=== PATIENT | female | born 1950 | race Caucasian/White ===

== ENCOUNTER 2017-12-30 07:30 | Inpatient (IN) ==
[2017-12-30] MEDS ORDERED: Chlorhexidine 4% Topical 120 APPLIC/120 ML Bottle TOPICAL SCH (08:45)
[2017-12-30] MEDS ORDERED: Insulin NovoLIN Regular Correctional Sugar Inj SQ SCH (08:45)
[2017-12-30] MEDS ORDERED: Chlorhexidine Gluconate 2% 1 Pack (2 Cloths) TOPICAL SCH (08:45)
[2017-12-30] MEDS ORDERED: Metoprolol Tartrate 25 MG Tablet PO SCH (08:45)
[2017-12-30] MEDS ORDERED: Vancomycin Inj 1 GM/200 ML PIGGYBACK IV.SIG SCH (09:00)
[2017-12-30] MEDS ORDERED: Sodium Chlor 0.9% Inj 500 ML IV.SIG SCH (09:00)
[2017-12-30] MEDS ORDERED: ceFAZolin 2 GM Premix Inj 2 GM/50 ML PIGGYBACK IV.SIG SCH (09:00)
[2017-12-30] MEDS ORDERED: Famotidine PF Inj 20 MG/2 ML Vial ONE (11:30)
[2017-12-30] MEDS ORDERED: Lidocaine PF 1% Inj 5 ML Syringe INFILTRATN ONE (12:00)
[2017-12-30] MEDS ORDERED: Glycopyrrolate Inj 1 MG/5 ML Syringe IV.PUSH ONE (12:00)
[2017-12-30] MEDS ORDERED: Sodium Chlor 0.9% Inj 500 ML IV.SIG ONE (12:00)
[2017-12-30] MEDS ORDERED: Labetalol HCl Inj 100 MG/20 ML Vial IV.CONT ONE (12:00)
[2017-12-30] MEDS ORDERED: Phenylephrine/NS 1000 MCG/10ML Syringe IV.PUSH ONE (12:00)
[2017-12-30] MEDS ORDERED: Metoprolol Inj 5 MG/5 ML Vial IV.PUSH ONE (12:00)
[2017-12-30] MEDS ORDERED: Dexmedetomidine Inj 200 MCG/2 ML Vial ONE (12:57)
[2017-12-30] MEDS ORDERED: Ketamine Inj 500 MG/10 ML Vial ONE (12:58)
[2017-12-30] MEDS ORDERED: Bupivacaine/Epinephrine PF Inj 0.5% 10 ML Vial ONE (13:52)
[2017-12-30] MEDS ORDERED: Betamethasone Sod Phos/Acetate Inj 30 MG/5 ML Vial IM ONE (13:52)
[2017-12-30 18:48] LABS: Hematocrit 26.4 % (35.0-46.0); Hemoglobin 8.8 gm/dL (11.6-15.3)
[2017-12-30] MEDS ORDERED: fentaNYL Citrate Inj 100 MCG/2 ML Ampul ONE (20:23)
[2017-12-30] MEDS ORDERED: Naloxone Inj 0.4 MG/ML Vial IV.PUSH PRN (21:13)
[2017-12-30] MEDS ORDERED: Temazepam 15 MG Capsule PO PRN (21:13)
[2017-12-30] MEDS ORDERED: Morphine Inj 4 MG/ML Vial IV.PUSH PRN (21:13)
[2017-12-30] MEDS ORDERED: Bisacodyl 10 MG Supp RECTAL PRN (21:13)
[2017-12-30] MEDS ORDERED: Post-op Orders (for Pharmacy) OTHER STA (21:13)
[2017-12-30] MEDS ORDERED: RIZATRIPTAN PO PRN (21:15)
[2017-12-30] MEDS ORDERED: Non-Formulary Drug (Cyclosporine [Restasis] 1 DRP) EACH EYE SCH (21:15)
--- NOTE | 2017-12-30 21:18 | XR ---
EXAM DATE: 12/30/2017 9:13 PM EDT AGE/SEX: 67 years / Female INDICATIONS: Hardware removal and fusion of L2-L4. CLINICAL DATA: This is the patient's initial encounter. Patient reports that signs and symptoms have been present for 1 day and indicates a pain score of Nonresponsive. MEDICAL/SURGICAL HISTORY: Non-responsive. Non-responsive. COMPARISON: [facility] [place], SPINE LUMBAR [facility] (AP & LAT), 05/19/2012. . FINDINGS: Transpedicular screws are seen at the L2-S1 levels with stabilization devices at the intervening disc levels. This appears well placed. CONCLUSION: Surgical hardware. Electronically signed by: Errol Higgins MD 12/30/2017 9:17 PM EDT
--- NOTE | 2017-12-30 21:36 | P.OP ---
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 Takedown of nonunion, L3-4. Removal of posterior spinal segmental instrumentation L3-4, L4-S1. Removal of broken instrumentation at L4, bilateral. Lumbar laminectomy L2-3, bilateral. Subtotal facet resection left L2-3. Posterior lateral interbody fusion L2-3. Placement of interbody cage L2-3 from the left. Posterior spinal segmental instrumentation L2-S1. Major bone grafting of the lumbar spine L2-L4, Anesthesia: GETA Surgeon: Eros Post MD Flat Clothier: Flor Madrigal PA-C Operation and Findings: EBL: 500 cc INDICATION: This patient is a 67-year-old female status post previous multiple lumbar surgeries. Her last surgery was 5 years ago where she had a portion of the lumbar instrumentation removed and a fusion at L3-4. She developed a failed fusion at that level and failure of instrumentation. She now has remarkable instability above that at the L2-3 level with high-grade spinal stenosis. She presents for surgical treatment. NOTE: Flor Madrigal PA-C was present for the entire surgical procedure as my administrative assistant receptionist. In my medical opinion her skill and care was necessary for the proper management of this patient. PROCEDURE: The patient was brought to the operating room and anesthetized in the supine position. The patient was rolled to a prone position on a Clement frame on a Kam table. All pressure points were protected in the back was scrubbed with alcohol followed by Hibiclens followed by ChloraPrep and draped sterilely. A timeout was done and antibiotics were given. AP and lateral radiographic images were used to identify the proper levels and perform skin markings. The previous incision was excised. Soft tissue dissection continued out to the tips of the transverse processes from L2 down to the fusion mass at L4. There was a failed fusion at L3-4 which was resected. The instrumentation at the L3- 4 level had fatigued. We removed the instrumentation below which was from [employer]. Soft tissue dissection allowed exposure at the L3-4 level where instrumentation was also removed. The screws were broken. A soft tissue and bone removal system was utilized. The screws were then removed in a retrograde fashion. The L2-3 level was approached. Under the microscope, a bilateral laminectomy was accomplished. We had a high-grade lateral recess stenosis worse on the left side. A subtotal facet resection was accomplished. The annulus was opened. A total discectomy was accomplished. A combination of autogenous bone graft, demineralized bone matrix and Nucel stem cells were injected into the disc space. A spine wave cage was deployed and elevated to 10 mm. The alignment was satisfactory. A high-speed bur was used to remove bone lateral access the pedicle at L2. Bilateral screws were placed using spine wave screws. Bilateral 6.5 x 50 screws were placed at that level, bilateral 7.5 x 50 screws at L3, bilateral 8.5 x 50 screws at L4, left 7.5 x 50 screws at L5 and right 6.5 x 50 screws, bilateral simply 5 x 40 screws at S1. The system was tightened according manufacture recommendation with the proper length rods. The spondylolisthesis at L2-3 was reduced. The wound was irrigated multiple times. Antibiotics were redosed during the operation. The lateral gutters were bone grafted from L2 down to the fusion mass of L4 and crossing the nonunion level of L3-4. A deep drain brought through separate stab incision. The fascia was closed with interrupted #1 Vicryl suture, subcutaneous tissue 2-0 Vicryl suture and skin with running intradermal 3-0 Vicryl followed by Steri-Strips and benzoin Sponge and needle counts and has been counts were all correct the patient tolerated procedure well taken recovery room in satisfactory condition. FINDINGS: There was a high-grade and very unstable spondylolisthesis at L2-3 which was corrected. The stenosis was decompressed. Screw position at the end of the procedure appeared to be very satisfactory
--- NOTE | 2017-12-30 21:37 | P.DCO ---
- Physical Therapy Physical Therapy: Gait training S/P Spinal Fusion: Gait training with walker, Weight bearing as tolerated, No twisting of torso, No bending - Nursing RN: 3 days/week x 2 weeks Nursing: Dressing changes Dressing changes: Daily dressing change - Certification Need for Home Health services: I have seen patient Trena Lugo on 12/30/17. My clinical findings support the need for the requested home health care services because: Need for Home Health Services: Limited ability to care for self, High risk of falls Homebound Certification: I certify that my clinical findings support that this patient is homebound because: Homebound Certification: Unsteady gait/balance
--- NOTE | 2017-12-30 21:39 | P.DS ---
Date of admission: 12/30/17 07:45 Primary care physician: German Simmons MD Attending physician on discharge: Eros Post Anticipated date of discharge: 01/01/18 Brief History from admission: This patient is a 67-year-old female admitted for elective surgery on her spine. She has an unstable spondylolisthesis at L2-3. She has a failed fusion at L3-4 and a high-grade spinal stenosis at L2-3. She has retained instrumentation at L3-4 and separate instrumentation L4 to the sacrum. She now presents for surgical treatment DS: Diagnosis - Discharge Diagnosis (1) Lumbar spinal stenosis Status: Acute DS: Medications - Discharge Medications Prescriptions: hydrocodone-acetaminophen 1 tab PO Q4H PRN #42 tab PRN Reason: Acute Pain DS: Summary Hospital Course: The patient was admitted electively for spinal decompression and fusion. This patient had a relatively unremarkable perioperative course. She was taken to the operating room on the date of admission. She was transferred to the floor postoperatively. On the second postoperative day she was up out of bed and ambulating using a brace. She was tolerating a regular diet. A walker was prescribed. She was given oral medications for pain. She is felt to be a candidate for discharge home with home health care and home physical therapy - Time Spent with Patient Total time spent providing and/or coordinating discharge services: - Quality: VTE Deep Vein Thrombosis/Pulmonary Embolism Present on Admission: No Exam Vital signs: Vital Signs 12/30/17 09:16 Temperature 98.3 F Pulse Rate 73 Respiratory Rate 18 Blood Pressure 196/115 H Pulse Oximetry 98 Intake & Output 12/30/17 12/30/17 12/31/17 06:59 18:59 06:59 Intake Total 50 / 50 Balance 50 / 50 Weight 97.9 kg Intake: IV 50 / 50 Ancef 2 GM Premix Inj 2 gm In 50 / 50 50 ml @ 100 mls/hr IV.SIG [employer] [facility]ARYN Rx#:[id number] Other: Weight On Admission 97.9 kg Results Procedures completed during hospitalization: Exploration of lumbar spinal fusion with removal of instrumentation, bilateral laminectomy L2-3, posterior spinal fusion L2-L4 Labs on day of discharge: Labs from last 24 hours 12/30/17 12/30/17 12/30/17 18:26 09:35 09:35 Hgb 8.8 L Hct 26.4 L POC Glucose 151 H Blood Type A Negative Blood Type Recheck Not needed Antibody Screen Negative - Impressions ITS Impressions Lumbar Spine X-Ray 12/30/17 00:00 CONCLUSION: Surgical hardware. Discharge Plan - Discharge Disposition Patient Disposition: W/Home Health Service - Discharge Condition Condition: Good - Discharge Order Discharge Orders: Discharge Order (Routine); Ordered 12/30/17 Ordered By: Eros Post - Physicians Team Primary Care Provider: German Simmons Attending Provider: Eros Post Other Providers: William Murdock MD - Rxs /Orders / Referrals /Forms Prescriptions: New hydrocodone-acetaminophen 10-325 mg Tablet 1 tab PO Q4H PRN (Reason: Acute Pain) Qty: 42 RF: 0 Continue Amitiza 24 mcg tablet 1 tab PO DAILY amitriptyline 75 mg tablet 1 tab PO HS amlodipine 10 mg Tablet 10 mg PO DAILY cyclobenzaprine 10 mg Tablet 10 mg PO TID PRN (Reason: Muscle Spasm) cyclosporine [Restasis] 0.05 % Dropperette 1 drp OPHTHALMIC (EYE) Q12H fenofibrate nanocrystallized 48 mg Tablet 48 mg PO DAILY glipizide 5 mg Tablet 5 mg PO DAILY insulin lispro [Humalog U-100 Insulin] 100 unit/mL Cartridge lisinopril 40 mg Tablet 40 mg PO DAILY montelukast 10 mg Tablet 10 mg PO QPM pregabalin [Lyrica] 100 mg Capsule 100 mg PO DAILY propranolol 60 mg Tablet 60 mg PO BID ranolazine [Ranexa] 500 mg Tablet Extended Release 12 Hr BID rizatriptan 10 mg Tablet 10 mg PO Q2-4H rosuvastatin 10 mg Tablet 10 mg PO HS valacyclovir 500 mg tablet 1 tab PO BID Ambulatory Orders / Order Sets / DME: Walker With Front Wheels (1 each) (Routine) Location: Determined by Patient Ordered By: Eros Post Referrals: German Simmons MD [Primary Care Provider] - See Instructions - Discharge Instructions Patient Printed Instructions: Hydrocodone/Acetaminophen (By mouth), Laxative, Stool Softeners (By mouth), Laminectomy (DC), How to Choose and Use a Walker ( GEN), Acute Low Back Pain (ED), Fall Prevention (DC), Lumbar Brace (DC) Additional Instructions: Make or keep your follow up appointments as directed by your provider. Take medications as directed. PRESCRIPTIONS PROVIDED AT TIME OF DISCHARGE. DO NOT CHANGE SURGICAL DRESSING, KEEP DRY AND INTACT. REPORT ANY SIGNS OF INFECTION SUCH REDNESS, DRAINAGE, SWELLING, OR FEVER TO THE SURGEON. CONTINUE TO WEAR YOUR LUMBAR BRACE WHEN OUT OF BED. - Post Discharge Care Plan Care Plan Goals: Your Health Problems: Goals to Promote Your Health: * To prevent worsening of your condition * To maintain your health at the optimal level Directions to Meet Your Goals: * Take your medications as prescribed * Follow your dietary instruction * Follow activity as directed * Keep your appointments as scheduled * Take your immunizations and boosters as scheduled * If your symptoms worsen call your PCP * If no PCP go to Urgent Care or Emergency Room Smoking is dangerous to your health. Avoid second hand smoke. You may reach the 24-hour crisis hotline for domestic abuse at .
[2017-12-30] MEDS ORDERED: PT:RESTASIS OPTH SOL EACH EYE SCH (22:00)
[2017-12-30] MEDS ORDERED: HYDROmorphone PF Inj 2 MG/ML Vial ONE (22:56)
[2017-12-31 07:18] LABS: ABG Base Excess -4.8 mmol/L (-2-2); ABG PCO2 36 mmHg (38-42); ABG PO2 282 mmHg (60-120)
--- NOTE | 2017-12-31 07:26 | P.PNOP ---
Subjective Interval history: No complaints. Complains of some low back pain but no leg pain. Drain in place Physical Exam Vital signs: Vital Signs 12/30/17 09:16 12/30/17 22:10 12/30/17 22:15 Temperature 98.3 F 98.0 F 98.3 F Pulse Rate 73 68 67 Respiratory Rate 18 16 18 Blood Pressure 196/115 H 159/68 H 161/76 H Pulse Oximetry 98 100 100 12/30/17 22:30 12/30/17 22:45 12/30/17 23:00 Temperature 98.0 F 98.0 F 98.1 F Pulse Rate 68 68 70 Respiratory Rate 16 16 16 Blood Pressure 153/72 H 149/71 H 144/64 H Pulse Oximetry 100 100 92 L 12/31/17 00:15 12/31/17 03:09 12/31/17 03:18 Temperature 97.5 F L 97.3 F L Pulse Rate 68 70 Respiratory Rate 17 18 18 Blood Pressure 135/66 147/63 H Pulse Oximetry 96 98 Intake & Output 12/30/17 12/31/17 12/31/17 18:59 06:59 18:59 Intake Total 3530 / 3530 Output Total 1955 / 1955 Balance 1575 / 1575 Weight 97.9 kg Intake: IV 50 / 50 Ancef 2 GM Premix Inj 2 gm In 50 / 50 50 ml @ 100 mls/hr IV.SIG [employer] [facility] Rx#:[id number] Oral 480 / 480 Anesthesia Amount 3000 / 3000 Output: Urine 300 / 300 Estimated Blood Loss 400 / 400 Urine Amount (Catheter) 1065 / 1065 Indwelling Temp Sensing 815 / 815 Catheter Indwelling Urethral Catheter 250 / 250 Wound Drainage 190 / 190 Back 190 / 190 Other: # Bowel Movements 0 Weight On Admission 97.9 kg Narrative: Dressing dry. Motor exam for quad, anterior tibialis, EHL, gastrocsoleus 5/5. Sensation almost normal. X-rays look fine. Drain in place - Urinary Catheter Management Indwelling Urethral Catheter Cath placed during this visit: yes Reason for continuing: Hourly intake/output Insertion date: 12/30/17 Insertion time: 16:45 Indwelling Temp Sensing Catheter Cath placed during this visit: no Reason for continuing: Not indwelling catheter Results - Labs CBC & Chem 7: 12/30/17 18:26 Laboratory Results - last 24 hr 12/30/17 12/30/17 12/30/17 09:35 09:35 18:26 Hgb 8.8 L Hct 26.4 L Puncture Site Patient Temperature O2 Saturation ABG pH ABG pCO2 ABG pO2 ABG HCO3 ABG O2 Content ABG Base Excess ABG Methemoglobin Castillo Test Hemoglobin Carboxyhemoglobin O2 Delivery Device Inspired O2 Critical Value POC Glucose 151 H Blood Type A Negative Blood Type Recheck Not needed Antibody Screen Negative 12/30/17 12/31/17 18:30 05:06 Hgb Hct Puncture Site Right radial Patient Temperature 98.6 O2 Saturation 97 ABG pH 7.36 ABG pCO2 36 L ABG pO2 282 H ABG HCO3 20 L ABG O2 Content 12.8 ABG Base Excess -4.8 L ABG Methemoglobin 1.7 Castillo Test Present Hemoglobin 8.9 L Carboxyhemoglobin 0.8 O2 Delivery Device Ventilator Inspired O2 60 Critical Value No POC Glucose 276 H Blood Type Blood Type Recheck Antibody Screen - Imaging Impressions Lumbar Spine X-Ray 12/30/17 00:00 CONCLUSION: Surgical hardware. Assessment and Plan - Problem List (1) Lumbar spinal stenosis Code(s): M48.061 - Spinal stenosis, lumbar region without neurogenic claudication Status: Acute - Assessment and Plan Failed fusion, L3-4. Retained hardware L3-4, L5-S1. Spinal stenosis with instability, L2-3. Surgery: Exploration lumbar spine, bilateral laminectomy L2-3, removal of instrumentation L3-S1, posterior spinal fusion with instrumentation and interbody cage L2-S1: POD #1. PLAN: Out of bed with brace. Lyme as needed for pain. A prescription is written. DC drain later today. Discharged home probably . Home health care. Home physical therapy. Stable orthopedically. I will be out of town until Friday
[2017-12-31] MEDS: Multivitamin/Minerals Therapeutic Tablet PO SCH ×2 (08:39→20:32)
[2017-12-31] MEDS: Senna/Docusate Sodium 8.6/50 MG Tablet PO SCH ×2 (08:39→20:32)
[2017-12-31] MEDS: Lisinopril 20 MG Tablet PO SCH (08:39)
[2017-12-31] MEDS: glipiZIDE 5 MG Tablet PO SCH (08:39)
[2017-12-31] MEDS: Ranolazine 500 MG 12HR ER Tablet PO SCH ×2 (08:40→20:32)
[2017-12-31] MEDS: amLODIPine 10 MG Tablet PO SCH (08:40)
[2017-12-31] MEDS: valACYclovir 500 MG Tab PO SCH ×2 (08:40→20:32)
[2017-12-31] MEDS: Fenofibrate 48 MG Tablet PO SCH (08:40)
[2017-12-31] MEDS ORDERED: PROPRANOLOL 60 MG PO SCH (09:00)
[2017-12-31] MEDS ORDERED: VALACYCLOVIR PO SCH (09:00)
[2017-12-31] MEDS ORDERED: AMITIZA PO SCH (09:00)
[2017-12-31] MEDS ORDERED: LUBIPROSTONE 24 MCG PO SCH (09:00)
--- NOTE | 2017-12-31 09:44 | P.CON ---
History of Present Illness Service: [facility] Consult date: 12/30/17 Requesting Physician: Eros Post Reason for Consult: Medical management Primary Care Provider: German Simmons MD History of Present Illness: 67-year-old female with a past medical history significant for diabetes, hypertension, hyperlipidemia, cardiomyopathy, renal cancer, and previous back surgeries who presents to the hospital on 12/30 for elective spinal surgery by Dr. Post. Patient is seen and examined sitting up in chair watching TV and in no acute distress. She denies any fevers, chills, nausea, vomiting, diarrhea , cough, shortness of breath or chest pain. She has been voiding without any issues, denies any abdominal pain or discomfort. [facility] consulted to assist with medical management. She is hoping to possibly be discharged tomorrow. Review of Systems All other systems reviewed negative except as stated in HPI [facility] - History History Provided By: Patient - Medical History Medical History: Medical History (Last Reviewed 12/31/17 @ 09:44 by Carlton Dexter) BP (high blood pressure) Bone spur of foot Cardiomyopathy Diabetes mellitus High cholesterol History of anesthesia reaction Insulin pump in place Kidney cancer, primary, with metastasis from kidney to other site Skin cancer - Surgical History Surgical History: Surgical History (Last Reviewed 12/31/17 @ 09:44 by Carlton Dexter) History of nephrectomy Hx of carpal tunnel repair Hx of total knee replacement Previous back surgery S/P wrist surgery - Tobacco History Second Hand Smoke Exposure: No Smoking Status: Never smoker - Alcohol History How Often Do You Have a Drink Containing Alcohol: Monthly or less - Substance Use History Substance History: No History of Abuse - Travel History Recent Travel in the [facility] Within the Last 8 Weeks: No - Immunization History Tetanus Immunization: Unsure Hx Influenza Vaccine This Season: No Medications and Allergies Active Medications: Active Medications Hydrocodone Bitart/Acetaminophen ([place] 10/325) 1 tab PO Q4H PRN PRN Reason: PAIN LESS THAN 5 ON SCALE Hydrocodone Bitart/Acetaminophen ([place] 10/325) 1 tab PO Q4H PRN PRN Reason: PAIN SCALE 5 TO 10 Last Admin: 12/31/17 06:40 Dose: 1 tab Al Hydroxide/Mg Hydroxide (Milk Of Magnesia Liq) 30 ml PO BID PRN PRN Reason: Mild Constipation Amitriptyline HCl (Elavil) 75 mg PO HS [facility] Amlodipine Besylate (Norvasc) 10 mg PO DAILY [facility] Last Admin: 12/31/17 08:40 Dose: 10 mg Atorvastatin Calcium (Lipitor) 20 mg PO HS [facility] Bisacodyl (Dulcolax Supp) 10 mg RECTAL DAILY PRN PRN Reason: SEVERE CONSITIPATION Chlorhexidine Gluconate (Chlorhexidine 2% Cloth) 3 pack TOPICAL [employer] [facility] Stop: 01/02/18 08:34 Last Admin: 12/30/17 10:01 Dose: 3 pack Chlorhexidine Gluconate (Hibiclens 4% Topical) 1 applicatio TOPICAL ONCE [facility] Stop: 01/03/18 08:44 Last Admin: 12/30/17 10:01 Dose: 1 applicatio Cyclobenzaprine HCl (Flexeril) 10 mg PO TID PRN PRN Reason: Muscle Spasm Last Admin: 12/31/17 08:40 Dose: 10 mg Diphenhydramine HCl (Benadryl) 25 mg PO Q6H PRN PRN Reason: ITCHING Fenofibrate (Tricor) 48 mg PO DAILY [facility] Last Admin: 12/31/17 08:40 Dose: 48 mg Glipizide (Glucotrol) 5 mg PO DAILY [facility] Last Admin: 12/31/17 08:39 Dose: 5 mg Lactated Ringer's (Lr 1000 Ml Inj) 1,000 mls @ 30 mls/hr IV.SIG .Q24H [facility] Stop: 01/02/18 08:34 Last Admin: 12/30/17 10:00 Dose: 30 mls/hr Sodium Chloride (Ns Inj) 500 mls @ 30 mls/hr IV.SIG .Q10H [facility] Stop: 01/02/18 08:34 Cefazolin Sodium 1,000 mg/ (Sodium Chloride) 100 mls @ 200 mls/hr IV.SIG Q6H [facility] Stop: 12/31/17 15:29 Last Admin: 12/31/17 08:41 Dose: 200 mls/hr Lactated Ringer's (Lr 1000 Ml Inj) 1,000 mls @ 80 mls/hr IV.CONT .[id number] [facility] Insulin Human Regular (Novolin R Correctional Sugar Inj) 0 units SQ [employer] [facility] ; Protocol Stop: 01/02/18 08:34 Lactulose (Lactulose Liq) 30 ml PO DAILY PRN PRN Reason: SEVERE CONSITIPATION Lisinopril (Prinivil) 40 mg PO DAILY [facility] Last Admin: 12/31/17 08:39 Dose: 40 mg Metoprolol Tartrate (Lopressor) 25 mg PO [employer] [facility] Stop: 01/02/18 08:34 Last Admin: 12/30/17 09:30 Dose: 25 mg Miscellaneous Information ([facility]) 1 each OTHER UNSCH PRN PRN Reason: SEE LABEL COMMENTS Stop: 12/31/17 22:14 Montelukast Sodium (Singulair) 10 mg PO QPM [facility] Morphine Sulfate (Morphine Inj) 4 mg IV.PUSH Q2H PRN PRN Reason: BREAKTHROUGH PAIN Multivitamins/Minerals (Theragran-M) 1 tab PO BID [facility] Stop: 03/01/18 08:59 Last Admin: 12/31/17 08:39 Dose: 1 tab Naloxone HCl (Narcan Inj) 0.4 mg IV.PUSH PRN PRN PRN Reason: Resp rate < 10 Non-Formulary Medication (Rizatriptan [Rizatriptan]) 10 mg PO Q2-4H [facility] Ondansetron HCl (Zofran Odt) 4 mg PO Q6H PRN PRN Reason: NAUSEA OR VOMITING Pt:Restasis Opth Brenda 0 each EACH EYE Q12H [facility] Pt:Amitiza 24 Mcg 0 each PO DAILY [facility] Povidone Iodine (Betadine 5% Antisepsis Kit) 1 applicatio EACH NARE [employer] [facility] Stop: 01/02/18 08:34 Last Admin: 12/30/17 10:00 Dose: Not Given Pregabalin (Lyrica) 100 mg PO DAILY [facility] Last Admin: 12/31/17 08:39 Dose: 100 mg Propranolol HCl (Inderal) 60 mg PO BID [facility] Last Admin: 12/31/17 08:39 Dose: 60 mg Ranolazine (Ranexa) 500 mg PO BID [facility] Last Admin: 12/31/17 08:40 Dose: 500 mg Senna/Docusate Sodium (Colleen-Colace) 1 tab PO BID [facility] Last Admin: 12/31/17 08:39 Dose: 1 tab Sennosides (Senokot) 17.2 mg PO BID PRN PRN Reason: Moderate Constipation Sodium Chloride (Ns Flush) 2 ml IV.FLUSH BID [facility] Last Admin: 12/31/17 08:41 Dose: 2 ml Sodium Chloride (Ns Flush) 2 ml IV.FLUSH PRN PRN PRN Reason: FLUSH AFTER USING IV ACCESS Temazepam (Restoril) 15 mg PO HS PRN PRN Reason: INSOMNIA Valacyclovir HCl (Valtrex) 500 mg PO BID [facility] Last Admin: 12/31/17 08:40 Dose: 500 mg Allergies Allergy/AdvReac Type Severity Reaction Status Date / Time clarithromycin Allergy Severe RASH Verified 12/30/17 08:53 Fish Containing Products Allergy Severe HIVES, Verified 12/30/17 08:53 EDEMA morphine Allergy Severe MIGRANE Verified 12/30/17 08:53 TRIGGER, NAUSEA warfarin Allergy Severe DEPRESSION, Verified 12/30/17 08:53 EMOTIONAL INSTABILITY codeine Allergy Unknown Confusion Verified 12/30/17 08:53 Home Medications Medication Instructions Recorded Confirmed Type Amitiza 1 tab PO DAILY 12/30/17 12/30/17 History amitriptyline 1 tab PO HS 12/30/17 12/30/17 History amlodipine 10 mg PO DAILY 12/30/17 12/30/17 History cyclobenzaprine 10 mg PO TID PRN 12/30/17 12/30/17 History cyclosporine [Restasis] 1 drp OPHTHALMIC (EYE) Q12H 12/30/17 12/30/17 History fenofibrate nanocrystallized 48 mg PO DAILY 12/30/17 12/30/17 History glipizide 5 mg PO DAILY 12/30/17 12/30/17 History insulin lispro [Humalog U-100 12/30/17 History Insulin] lisinopril 40 mg PO DAILY 12/30/17 12/30/17 History montelukast 10 mg PO QPM 12/30/17 12/30/17 History pregabalin [Lyrica] 100 mg PO DAILY 12/30/17 12/30/17 History propranolol 60 mg PO BID 12/30/17 12/30/17 History ranolazine [Ranexa] BID 12/30/17 History rizatriptan 10 mg PO Q2-4H 12/30/17 12/30/17 History rosuvastatin 10 mg PO HS 12/30/17 12/30/17 History valacyclovir 1 tab PO BID 12/30/17 12/30/17 History Physical Exam Vital signs: Vital Signs 12/30/17 22:10 12/30/17 22:15 12/30/17 22:30 Temperature 36.7 C 36.8 C 36.7 C Pulse Rate 68 67 68 Respiratory Rate 16 18 16 Blood Pressure 159/68 H 161/76 H 153/72 H Pulse Oximetry 100 100 100 12/30/17 22:45 12/30/17 23:00 12/31/17 00:15 Temperature 36.7 C 36.7 C 36.4 C L Pulse Rate 68 70 68 Respiratory Rate 16 16 17 Blood Pressure 149/71 H 144/64 H 135/66 Pulse Oximetry 100 92 L 96 12/31/17 03:09 12/31/17 03:18 12/31/17 07:10 Temperature 36.3 C L Pulse Rate 70 Respiratory Rate 18 18 18 Blood Pressure 147/63 H Pulse Oximetry 98 Intake & Output 12/30/17 12/31/17 12/31/17 18:59 06:59 18:59 Intake Total 3530 / 3530 100 / 100 Output Total 1955 / 5 Balance 1575 / 1575 100 / 100 Weight 97.9 kg Intake: IV 50 / 50 100 / 100 Ancef 2 GM Premix Inj 2 gm In 50 / 50 50 ml @ 100 mls/hr IV.SIG [employer] [facility] Rx#:[id number] Ancef Inj 1,000 MG In NS Inj 100 / 100 100 ML @ 200 mls/hr IV.SIG Q6H [facility] Rx#:[id number] Oral 480 / 480 Anesthesia Amount 3000 / 3000 Output: Urine 300 / 300 Estimated Blood Loss 400 / 400 Urine Amount (Catheter) 1065 / 1065 Indwelling Temp Sensing 815 / 815 Catheter Indwelling Urethral Catheter 250 / 250 Wound Drainage 190 / 190 Back 190 / 190 Other: Date of Last Bowel Movement 12/30/17 # Bowel Movements 0 Weight On Admission 97.9 kg Narrative: GENERAL: Obese female sitting up in bed appears to be in no acute distress. SKIN: Warm and dry. HEAD: Atraumatic. Normocephalic. EYES: Pupils equal and round. No scleral icterus. No injection or drainage. ENT: No nasal bleeding, mucous membrane pink and moist. NECK: Trachea midline. No JVD. CARDIOVASCULAR: Regular rate and rhythm. RESPIRATORY: No accessory muscle use. Clear to auscultation. Breath sounds equal bilaterally. GASTROINTESTINAL: Abdomen soft, non-tender, nondistended. + Bowel sounds. MUSCULOSKELETAL: Extremities without clubbing, cyanosis, or edema. No obvious deformities. Back brace in place, proximal portion of dressing with no drainage noted, accordion drain with small amount of sanguinous drainage. NEUROLOGICAL: Awake and alert. No obvious cranial nerve deficits. Motor grossly within normal limits. Normal speech. PSYCHIATRIC: Appropriate mood and affect; insight and judgment normal. - Urinary Catheter Management Indwelling Urethral Catheter Cath placed during this visit: yes Reason for continuing: Hourly intake/output Insertion date: 12/30/17 Insertion time: 16:45 Indwelling Temp Sensing Catheter Cath placed during this visit: no Reason for continuing: Not indwelling catheter Assessment and Plan - Plan This patient is a 67-year-old female admitted for elective surgery on her spine. Lumbar spinal stenosis -Patient is status post exploratory surgery of lumbar spine, bilateral laminectomy L2-L3, removal of instrumentation L3-S1, posterior spinal fusion with instrumentation and interbody cage L2-S1 -Encourage out of bed with brace -Pain control with p.o. [place], bowel regimen in place -Drain to be DC'd today, likely discharge tomorrow Hypertension Hyperlipidemia -Continue Inderal, Norvasc, lisinopril, fenofibrate and Lipitor -BP this morning slightly elevated, will continue to monitor and if needed increase BP medications -Add as needed clonidine Diabetes mellitus -Continue diabetic diet, glipizide 5 mg daily. -Patient does not have actual insulin pump in place at the moment. Order Accu-Cheks with insulin sliding scale coverage. Anemia -H&H 8.8/26.4, possibly postop related -Asymptomatic, recheck H&H today. DVT prophylaxis-MARIE olmstead and SCDs Thank you Dr. Reynolds for this consultation, will continue to follow along. Discussed Condition With: Patient and RN.
[2017-12-31] MEDS ORDERED: Dextrose 50% in Water 50 ML Vial IV.PUSH PRN (11:28)
[2017-12-31 14:00] LABS: Hematocrit 25.2 % (35.0-46.0); Hemoglobin 8.5 gm/dL (11.6-15.3)
[2017-12-31] MEDS: Insulin NovoLOG Aspart Correctional Sugar Inj SQ SCH ×3 (14:11→20:42)
[2017-12-31] MEDS ORDERED: Montelukast 10 MG Tablet PO SCH (18:00)
[2017-12-31] MEDS ORDERED: ROSUVASTATIN 10 MG PO SCH (21:00)
--- NOTE | 2018-01-01 07:30 | P.PNOP ---
Subjective Interval history: Exploration lumbar spine, bilateral laminectomy L2-3, removal of instrumentation L3-S1, posterior spinal fusion with instrumentation and interbody cage L2-S1 POD #2 Pt awake and alert, sitting upright in chair with brace on. Admits pain well controlled and feels ready for discharge to home. No other complaints. Physical Exam Vital signs: Vital Signs 12/31/17 08:00 12/31/17 10:38 12/31/17 11:40 Temperature 98.1 F Pulse Rate 73 Respiratory Rate 18 18 18 Blood Pressure 171/90 H Pulse Oximetry 95 12/31/17 12:00 12/31/17 14:16 12/31/17 16:00 Temperature 98.2 F 98.2 F Pulse Rate 71 73 Respiratory Rate 18 18 17 Blood Pressure 144/80 H 146/65 H Pulse Oximetry 94 L 98 12/31/17 17:40 12/31/17 20:00 01/01/18 00:00 Temperature 98.1 F 98.9 F Pulse Rate 74 72 Respiratory Rate 18 20 18 Blood Pressure 118/58 L 108/64 Pulse Oximetry 97 98 Intake & Output 12/31/17 01/01/18 01/01/18 18:59 06:59 18:59 Intake Total 300 / 300 600 / 600 Output Total 130 / 130 Balance 170 / 170 600 / 600 Intake: IV 300 / 300 Ancef Inj 1,000 MG In NS Inj 300 / 300 100 ML @ 200 mls/hr IV.SIG Q6H [facility] Rx#:[id number] Oral 600 / 600 Output: Wound Drainage 130 / 130 Back 130 / 130 Other: # Voids 3 2 Date of Last Bowel Movement 12/30/17 12/30/17 Narrative: Brace on, no radiculopathy findings, dressing dry and intact, mild amount of pain around incision, good cap refill, NVI - Urinary Catheter Management Indwelling Urethral Catheter Cath placed during this visit: yes Reason for continuing: Hourly intake/output Insertion date: 12/30/17 Insertion time: 16:45 Indwelling Temp Sensing Catheter Cath placed during this visit: no Reason for continuing: Not indwelling catheter Results - Labs CBC & Chem 7: 12/31/17 13:20 Laboratory Results - last 24 hr 12/31/17 12/31/17 12/31/17 07:44 11:58 13:20 Hgb 8.5 L Hct 25.2 L POC Glucose 231 H 217 H 12/31/17 12/31/17 17:39 20:40 Hgb Hct POC Glucose 100 160 H - Procedures Exploration lumbar spine, bilateral laminectomy L2-3, removal of instrumentation L3-S1, posterior spinal fusion with instrumentation and interbody cage L2-S1 Assessment and Plan - Problem List (1) Lumbar spinal stenosis Code(s): M48.061 - Spinal stenosis, lumbar region without neurogenic claudication Status: Acute - Assessment and Plan Failed fusion, L3-4. Retained hardware L3-4, L5-S1. Spinal stenosis with instability, L2-3. Surgery: Exploration lumbar spine, bilateral laminectomy L2-3, removal of instrumentation L3-S1, posterior spinal fusion with instrumentation and interbody cage L2-S1: POD #2. PLAN: Ortho status stable Out of bed with brace. [place] as needed for pain. A prescription is written. Acute pain exception. Clear for discharge from an orthopedic standpoint. Home health care / physical therapy.
[2018-01-01 07:37] VITALS: BP 111/53; PULSE 78; TEMP 98.2; O2SAT 96
[2018-01-01] MEDS: Insulin NovoLOG Aspart Correctional Sugar Inj SQ SCH ×2 (07:37→12:20)
[2018-01-01] MEDS: glipiZIDE 5 MG Tablet PO SCH ×2 (07:38→08:01)
[2018-01-01] MEDS: Multivitamin/Minerals Therapeutic Tablet PO SCH ×2 (07:39→08:02)
[2018-01-01] MEDS: Ranolazine 500 MG 12HR ER Tablet PO SCH ×2 (07:39→08:02)
[2018-01-01] MEDS: valACYclovir 500 MG Tab PO SCH ×2 (07:39→08:02)
[2018-01-01] MEDS: Fenofibrate 48 MG Tablet PO SCH ×2 (07:39→08:02)
[2018-01-01] MEDS: amLODIPine 10 MG Tablet PO SCH ×2 (07:39→08:01)
[2018-01-01] MEDS: Lisinopril 20 MG Tablet PO SCH ×2 (07:40→08:01)
[2018-01-01] MEDS: Senna/Docusate Sodium 8.6/50 MG Tablet PO SCH ×2 (07:40→08:01)
[2018-01-01 14:13] VITALS: RESP 18
== END 2018-01-01 15:35 | disposition home health service (06) ==
LOC: HSDI 07:45 → N06 23:26
PROVIDERS: ADMIT Orthopaedic Surgery Orthopaedic Surgery of the Spine; ATTEND Orthopaedic Surgery Orthopaedic Surgery of the Spine